=== PATIENT | male | born 1955 | race Caucasian/White ===

== ENCOUNTER 2023-12-09 18:19 | Emergency (ER) | payer MEDICARE, OTHER, SELFPAY ==
[2023-12-09 18:23] VITALS: BP 165/91; BMI 28.4
--- NOTE | 2023-12-09 21:53 | ED.GENMED ---
History of Present Illness
General
Chief Complaint: Fall
Source: patient and spouse
Exam Limitations: none
Time Seen by Provider: 12/09/23 21:46
Travel History
Have you had any contact with someone who has COVID-19?: No
Do you have any symptoms of coronavirus? Fever > 100 degrees, chills, cough, shortness of breath, sore throat, loss of taste or smell, muscle aches, or headache?: No
History of Present Illness
History of Present Illness:
this is a 68yo male who presents after a fall. Patient states he was up on a counter and went to step down onto his stepladder and fell. He injured his right knee and his forehead. He denies vomiting or neck pain. No back pain. No numbness or
tingling.
Past History
Past History
ED Past Medical History: COPD, HTN, Hypercholesterolemia and Other (Kidney stones, diverticulitis)
ED Past Surgical History: Other (HERNIA)
Social History
Tobacco: Non-smoker
Alcohol: Occasional
Drug: None
Personal:
Living: with family
Phy Exam
Physical Exam
Physical Exam:
CONSTITUTIONAL Vital signs reviewed, Patient alert and oriented to person, place and time. Well-appearing
HEAD contusion noted to left forehead.
EYES eyelids normal to inspection, Extraocular muscles intact, Conjunctiva normal, Sclera normal.
NECK normal range of motion, Trachea midline, no jugular venous distention. No midline tenderness
RESP no respiratory distress
BACK No obvious deformities. No midline tenderness
UPPER EXTREMITY Gross Range of motion normal, gross motor strength normal
LOWER EXTREMITY Gross range of motion normal, Gross motor strength normal. Able to extend and flex without difficulty. No evidence of quadricep tendon rupture. Does have tenderness noted to the medial aspect of the right knee. Focal tenderness
at the distal femur medial condyle. MCL appears intact. LCL appears intact. Negative anterior drawer. Normal distal pulses
NEURO Speech normal, No focal motor deficits include, Nathaniel coma scale 15, Memory normal, Cranial Nerves intact to screening exam.
SKIN Skin warm, dry, and normal in color.
PSYCHIATRIC Patient oriented to person place and time, Normal affect.
Course
Orders/Labs/Results
Orders:
Orders
12/09/23 18:26
CT Head W/o Iv Contrast Urgent
Comment:
Reason For Exam: pain
Knee, Right 4 or More Views [CR Knee- Right 4 Or More View*] Urgent
Comment:
Reason For Exam: pain
12/09/23 21:53
Knee Immobilizer Right-Treatme ONCE
Vital Signs
Initial and Last Documented VS:
Initial Vital Signs
Temp Pulse Resp BP Pulse Ox
98 F 64 16 165/91 99
12/09/23 18:23 12/09/23 18:23 12/09/23 18:23 12/09/23 18:23 12/09/23 18:23
Last Documented Vital Signs
Temp Pulse Resp BP Pulse Ox
98 F 64 16 165/91 99
12/09/23 18:23 12/09/23 18:23 12/09/23 18:23 12/09/23 18:23 12/09/23 18:23
MDM/Problems Addressed
MDM/Problems Addressed:
Head injury, head contusion, knee injury, hypertension
*Radiology
Radiology exam reviewed: radiology read reviewed
*Pulse Oximetry
Patient hypoxic: no
*Critical Care Note
Total Time (30-74mins, 75-104mins- exclusive of procedures): Not Applicable
Data Reviewed
Source: patient
Further Testing Considered But Not Given:
Consider C-spine CT but no midline tenderness, Nexus negative
Patient Management
Escalation/DeEscalation of care consider admission/obs:
Recommended rest, ice and elevation. No clinical evidence of quadricep tendon rupture but will immobilize and advise orthopedic follow-up if symptoms persist.
ED Attending Note
-
Portions of this chart may have been created with voice recognition software.� Occasional wrong word or��sound alike� substitutions may have occurred due to the inherent limitations of voice recognition software.
Discharge Plan
Departure
Patient Disposition: Home (Routine Discharge)
Date of Disposition: 12/09/23
Time of Disposition: 21:54
Patient with high blood pressure during this ER visit?: Yes
Discharge Problem:
Injury of knee, Head injury
Instructions: Head Injury in Adults (DC), BLOOD PRESSURE
Prescriptions:
No Action
aspirin,buffd-calcium carb-mag 325 MG tablet
325 mg PO DAILY
simvastatin 40 MG tablet
40 mg PO QPM
tamsulosin 0.4 MG capsule
0.8 mg PO DAILY
cyanocobalamin (vitamin B-12) 1,000 MCG tablet
1,000 mcg PO DAILY
diphenhydramine HCl [Banophen] 25 MG capsule
25 mg PO HSPRN PRN (Reason: insomnia)
loratadine 10 MG tablet
10 mg PO PRN PRN (Reason: allergies)
hydrocodone-acetaminophen 1 TABLET tablet
1 - 2 tab PO Q4HPRN PRN (Reason: moderate to severe pain) Qty: 10 0RF
metronidazole 500 mg Tablet
500 mg PO TID Qty: 30 0RF
ciprofloxacin HCl 500 mg Tablet
500 mg PO BID Qty: 20 0RF
Referrals:
Feroz Lea MD [Active] -
NONE,* [Family Provider] -
Activity Restrictions/Additional Instructions:
Knee Injury
Please ice and elevate your knee. Please also ice your forehead. Return immediately for numbness, tingling, worsening symptoms or any other concerns. If symptoms persist over the next 1 week, please follow-up with orthopedics as discussed.
Interventions
Interventions:
*Risk Screen - Suicide Last Done: 12/09/23 18:23
*Neglect/Abuse Screening Last Done: 12/09/23 18:23
*ED COVID-19 Vaccine History Last Done: 12/09/23 18:23
ED-Musculoskeletal Assessment Last Done: 12/09/23 19:54
ED- Neurological Assessment Last Done: 12/09/23 19:54
ED-Skin Assessment Last Done: 12/09/23 19:54
== END 2023-12-09 22:12 | disposition home or self-care (01) ==
LOC: EMR 18:19
PROVIDERS: EMERGENCY PHYSICIAN Emergency Medicine; FAMILY PHYSICIAN Family Medicine
DX: S89.91XA Unspecified injury of right lower leg, initial encounter (principal); S09.90XA Unspecified injury of head, initial encounter; W11.XXXA Fall on and from ladder, initial encounter; J44.9 Chronic obstructive pulmonary disease, unspecified; I10 Essential (primary) hypertension; E78.00 Pure hypercholesterolemia, unspecified; Z87.442 Personal history of urinary calculi
CPT/HCPCS: 99284; 70450; 73564

== ENCOUNTER → 2024-02-05 09:18 | Outpatient (REF) | payer MEDICARE, OTHER, SELFPAY ==
[2024-02-05 10:11] LABS: % Basophils 0.4 % (0-2); % Eosinophils 3.5 % (0-6); % Immature Granulocytes 0.4 % (0-0.5); % Lymphocytes 30.7 % (20.5-51.1); Absolute Eosinophils 0.3 10^3/uL (0-0.7); Absolute Lymphocytes 2.5 10^3/uL (1.2-3.4); Absolute Monocytes 0.8 10^3/uL (0.1-0.6); Absolute Neutrophils 4.5 10^3/uL (1.4-6.5); Hematocrit 47.7 % (39.0-52.0); Hemoglobin 15.9 g/dL (13.0-18.0); Mean Corp Hgb Conc. 33.3 g/dL (33.0-37.0); Mean Corpuscular Hgb 32.3 pg (27.0-31.0); Mean Platelet Volume 9.2 fL (7.4-10.4); Nucleated Red Blood Cells % 0 % (-); Platelet Count 265 10^3/uL (130-400); Red Blood Cell Count 4.92 10^6/uL (4.70-6.10); Red Cell Dist. Width 12.3 % (11.5-14.5); White Blood Cell Count 8.2 10^3/uL (4.8-10.8)
[2024-02-05 10:39] LABS: ALT (SGPT) 32 U/L (0-50); AST (SGOT) 28 U/L (17-59); Albumin 4.3 g/dl (3.5-5.0); Alkaline Phosphatase 94 U/L (38-126); Blood Urea Nitrogen 20 mg/dl (9-20); Calcium 10.1 mg/dl (8.4-10.2); Carbon Dioxide 27 mmol/L (22-30); Chloride 101 mmol/L (98-107); Glucose 105 mg/dl (70-99); HDL Cholesterol 54 mg/dl; LDL Cholesterol, Calculated 66 mg/dl; Potassium 4.4 mmol/L (3.5-5.1); Sodium 137 mmol/L (135-145); Total Cholesterol 141 mg/dl (50-199); Total Protein 6.8 g/dl (6.3-8.2); Triglyceride 106 mg/dl (10-149); Very Low Density Lipoprotein 21 mg/dl (0-30); eGFR > 60.00
[2024-02-05 11:10] LABS: PSA, Total - Screen 2.23 ng/ml (0.0-4.0)
== END ==
LOC: REG 09:18
PROVIDERS: ATTENDING PHYSICIAN Family Medicine
DX: N40.0 Benign prostatic hyperplasia without lower urinary tract symptoms (principal); R73.03 Prediabetes; I10 Essential (primary) hypertension; E78.2 Mixed hyperlipidemia; Z12.5 Encounter for screening for malignant neoplasm of prostate
CPT/HCPCS: 36415; 80053; 80061; 83036; 85025; G0103

== ENCOUNTER → 2024-02-19 10:48 | Outpatient (REF) | payer OTHER, SELFPAY ==
[2024-02-19 12:33] LABS: Hepatitis B Surface Antibody Negative
[2024-02-21 11:20] LABS: Quantiferon Mitogen minus NIL 4.47 IU/mL; Quantiferon NIL 0.02 IU/mL; Quantiferon TB Gold Plus Negative (Negative)
[2024-02-22 16:55] LABS: Mumps Virus IgG Positive; Varicella Zoster IgG (VZV) Positive
[2024-02-23 11:51] LABS: Rubella Positive
[2024-02-23 14:34] LABS: Rubeola (Measles) IgG Positive
== END ==
LOC: REG 10:48
PROVIDERS: ATTENDING PHYSICIAN Nurse Practitioner Family
DX: Z23 Encounter for immunization (principal)
CPT/HCPCS: 36415; 86480; 86706; 86735; 86762; 86765; 86787

== ENCOUNTER → 2024-08-12 09:06 | Outpatient (REF) | payer OTHER, MEDICARE, SELFPAY ==
[2024-08-12 11:05] LABS: Glycohemoglobin (HgbA1c) 5.7 % (4.0-5.6)
[2024-08-12 11:18] LABS: ALT (SGPT) 27 U/L (0-50); AST (SGOT) 27 U/L (17-59); Albumin 4.4 g/dl (3.5-5.0); Alkaline Phosphatase 86 U/L (38-126); Blood Urea Nitrogen 19 mg/dl (9-20); Calcium 9.9 mg/dl (8.4-10.2); Carbon Dioxide 29 mmol/L (22-30); Chloride 101 mmol/L (98-107); Glucose 101 mg/dl (70-99); HDL Cholesterol 62 mg/dl; LDL Cholesterol, Calculated 75 mg/dl; Potassium 4.6 mmol/L (3.5-5.1); Sodium 141 mmol/L (135-145); Total Bilirubin 0.8 mg/dl (0.2-1.3); Total Cholesterol 157 mg/dl (50-199); Total Protein 6.9 g/dl (6.3-8.2); Triglyceride 100 mg/dl (10-149); Very Low Density Lipoprotein 20 mg/dl (0-30); eGFR > 60.00
== END ==
LOC: REG 09:06
PROVIDERS: ATTENDING PHYSICIAN Physician Assistant Medical
DX: I10 Essential (primary) hypertension (principal); E78.2 Mixed hyperlipidemia; R73.03 Prediabetes
CPT/HCPCS: 36415; 80053; 80061; 83036

== ENCOUNTER → 2024-09-08 16:08 | Outpatient (REF) | payer MEDICARE, OTHER, SELFPAY | LOC: REG 16:08 | PROVIDERS: ATTENDING PHYSICIAN Surgery; FAMILY PHYSICIAN Family Medicine | DX: N52.01 Erectile dysfunction due to arterial insufficiency (principal) | CPT/HCPCS: 36415; 84270; 84402; 84403 ==

== ENCOUNTER → 2024-09-29 06:28 | Day surgery (SDC) | payer MEDICARE, OTHER, SELFPAY ==
[2024-09-29 08:19] LABS: Glucose - Point of Care 125 mg/dl (70-99)
== END ==
LOC: GI 06:28
PROVIDERS: ATTENDING PHYSICIAN Internal Medicine Gastroenterology
DX: K57.30 Diverticulosis of large intestine without perforation or abscess without bleeding (principal); K64.8 Other hemorrhoids; K31.7 Polyp of stomach and duodenum; K31.89 Other diseases of stomach and duodenum; R12 Heartburn; Z86.0100 Personal history of colon polyps, unspecified; Z87.19 Personal history of other diseases of the digestive system; Z09 Encounter for follow-up examination after completed treatment for conditions other than malignant neoplasm
CPT/HCPCS: 45385; 43239; 88305; 82962; 88342

== ENCOUNTER → 2025-02-15 08:14 | Outpatient (REF) | payer MEDICARE, OTHER, SELFPAY ==
[2025-02-15 09:59] LABS: % Basophils 0.6 % (0-2); % Eosinophils 4.6 % (0-6); % Immature Granulocytes 0.4 % (0-0.5); % Lymphocytes 33.2 % (20.5-51.1); % Monocytes 9.8 % (1.7-9.3); % Neutrophils 51.4 % (42.2-75.2); Absolute Eosinophils 0.3 10^3/uL (0-0.7); Absolute Lymphocytes 2.4 10^3/uL (1.2-3.4); Absolute Monocytes 0.7 10^3/uL (0.1-0.6); Absolute Neutrophils 3.7 10^3/uL (1.4-6.5); Hematocrit 48.6 % (39.0-52.0); Hemoglobin 16.4 g/dL (13.0-18.0); Mean Corp Hgb Conc. 33.7 g/dL (33.0-37.0); Mean Corpuscular Hgb 33.3 pg (27.0-31.0); Mean Corpuscular Volume 98.8 fL (80.0-94.0); Mean Platelet Volume 9.5 fL (7.4-10.4); Nucleated Red Blood Cells % 0 % (-); Platelet Count 261 10^3/uL (130-400); Red Blood Cell Count 4.92 10^6/uL (4.70-6.10); Red Cell Dist. Width 12.6 % (11.5-14.5); White Blood Cell Count 7.2 10^3/uL (4.8-10.8)
[2025-02-15 10:41] LABS: Glycohemoglobin (HgbA1c) 5.6 % (4.0-5.6)
[2025-02-15 10:59] LABS: Microalbumin, Random Urine 0.8 mg/dl (0.6-1.7); Microalbumin/creatinine Ratio 6.7 mg/g
[2025-02-15 11:08] LABS: ALT (SGPT) 30 U/L (0-50); AST (SGOT) 30 U/L (17-59); Albumin 4.8 g/dl (3.5-5.0); Alkaline Phosphatase 90 U/L (38-126); Blood Urea Nitrogen 19 mg/dl (9-20); Calcium 9.8 mg/dl (8.4-10.2); Carbon Dioxide 30 mmol/L (22-30); Chloride 101 mmol/L (98-107); Glucose 112 mg/dl (70-99); HDL Cholesterol 60 mg/dl; LDL Cholesterol, Calculated 101 mg/dl; Potassium 4.5 mmol/L (3.5-5.1); Sodium 142 mmol/L (135-145); Total Bilirubin 0.9 mg/dl (0.2-1.3); Total Cholesterol 186 mg/dl (50-199); Total Protein 7.4 g/dl (6.3-8.2); Triglyceride 128 mg/dl (10-149); Very Low Density Lipoprotein 25 mg/dl (0-30); eGFR > 60.00
[2025-02-15 12:14] LABS: PSA, Total - Screen 2.49 ng/ml (0.0-4.0); TSH Reflex To Free T4 1.42 uIU/ml (0.47-4.68)
== END ==
LOC: REG 08:14
PROVIDERS: ATTENDING PHYSICIAN Internal Medicine
DX: E78.2 Mixed hyperlipidemia (principal); I10 Essential (primary) hypertension; E11.9 Type 2 diabetes mellitus without complications; Z12.5 Encounter for screening for malignant neoplasm of prostate
CPT/HCPCS: 36415; 80053; 80061; 82043; 82570; 83036; 84443; 85025; G0103

== ENCOUNTER 2025-04-18 10:25 | Outpatient (RCR) | payer MEDICARE, OTHER, SELFPAY | END 2025-04-18 23:59 | disposition home or self-care (01) | LOC: RPT 10:25 | PROVIDERS: ATTENDING PHYSICIAN Internal Medicine Gastroenterology; FAMILY PHYSICIAN Internal Medicine | DX: R15.2 Fecal urgency (principal); K59.00 Constipation, unspecified; Z73.6 Limitation of activities due to disability | CPT/HCPCS: 97161; 97530 ==

== ENCOUNTER 2025-05-22 10:36 | Outpatient (RCR) | payer MEDICARE, OTHER, SELFPAY | END 2025-05-22 23:59 | disposition home or self-care (01) | LOC: RPT 10:36 | PROVIDERS: ATTENDING PHYSICIAN Internal Medicine Gastroenterology; FAMILY PHYSICIAN Internal Medicine | DX: R15.2 Fecal urgency (principal); K59.00 Constipation, unspecified; Z73.6 Limitation of activities due to disability | CPT/HCPCS: 97110; 97112; 97140 ==

== ENCOUNTER 2025-06-07 14:30 | Outpatient (RCR) | payer MEDICARE, OTHER, SELFPAY | END 2025-06-07 23:59 | disposition home or self-care (01) | LOC: RPT 14:30 | PROVIDERS: ATTENDING PHYSICIAN Internal Medicine Gastroenterology; FAMILY PHYSICIAN Internal Medicine | DX: R15.2 Fecal urgency (principal); K59.00 Constipation, unspecified; Z73.6 Limitation of activities due to disability; K58.9 Irritable bowel syndrome, unspecified; K57.92 Diverticulitis of intestine, part unspecified, without perforation or abscess without bleeding | CPT/HCPCS: 97110; 97112 ==

== ENCOUNTER 2025-07-18 13:54 | Outpatient (RCR) | payer MEDICARE, OTHER, SELFPAY | END 2025-07-18 23:59 | disposition home or self-care (01) | LOC: RPT 13:54 | PROVIDERS: ATTENDING PHYSICIAN Internal Medicine Gastroenterology; FAMILY PHYSICIAN Internal Medicine | DX: R15.2 Fecal urgency (principal); K59.00 Constipation, unspecified; Z73.6 Limitation of activities due to disability; K58.9 Irritable bowel syndrome, unspecified; K57.92 Diverticulitis of intestine, part unspecified, without perforation or abscess without bleeding | CPT/HCPCS: 97110; 97112 ==

== ENCOUNTER → 2025-07-20 11:13 | Outpatient (REF) | payer MEDICARE, OTHER, SELFPAY | LOC: HWRCS 11:13 | PROVIDERS: ATTENDING PHYSICIAN Internal Medicine Cardiovascular Disease; FAMILY PHYSICIAN Internal Medicine | DX: R01.1 Cardiac murmur, unspecified (principal) | CPT/HCPCS: 93306 ==

== ENCOUNTER → 2025-08-11 11:23 | Outpatient (REF) | payer MEDICARE, OTHER, SELFPAY ==
[2025-08-11 12:20] LABS: Hematocrit 48.7 % (39.0-52.0); Hemoglobin 16.7 g/dL (13.0-18.0); Mean Corp Hgb Conc. 34.3 g/dL (33.0-37.0); Mean Corpuscular Volume 98.2 fL (80.0-94.0); Nucleated Red Blood Cells % 0 % (-); Platelet Count 273 10^3/uL (130-400); Red Cell Dist. Width 12.1 % (11.5-14.5)
[2025-08-11 12:51] LABS: Glycohemoglobin (HgbA1c) 5.9 % (4.0-5.6)
[2025-08-11 14:05] LABS: ALT (SGPT) 29 U/L (0-50); AST (SGOT) 26 U/L (17-59); Albumin 4.7 g/dl (3.5-5.0); Alkaline Phosphatase 89 U/L (38-126); Blood Urea Nitrogen 18 mg/dl (9-20); Calcium 10.1 mg/dl (8.4-10.2); Carbon Dioxide 31 mmol/L (22-30); Chloride 102 mmol/L (98-107); Glucose 112 mg/dl (70-99); HDL Cholesterol 57 mg/dl; LDL Cholesterol, Calculated 92 mg/dl; Potassium 5.2 mmol/L (3.5-5.1); Sodium 139 mmol/L (135-145); Total Protein 7.6 g/dl (6.3-8.2); Very Low Density Lipoprotein 31 mg/dl (0-30); eGFR > 60.00
== END ==
LOC: REG 11:23
PROVIDERS: ATTENDING PHYSICIAN Internal Medicine
DX: I10 Essential (primary) hypertension (principal); E78.2 Mixed hyperlipidemia; R73.03 Prediabetes
CPT/HCPCS: 36415; 80053; 80061; 83036; 84443; 85025